=== PATIENT | male | born 1955 | race African-American/Black ===

== ENCOUNTER 2021-05-20 06:17 | Observation (INO) | payer MEDICARE, OTHER ==
[~2021-05-20] VITALS: Ht 185.4 cm; Wt 144.0 kg
[2021-05-20] MEDS ORDERED: CONTRAST GIVEN. MC PRN (08:00)
[2021-05-20] MEDS ORDERED: IOHEXOL 350 MG/ML 100 ML VIAL. IV ONE (08:00)
--- NOTE | 2021-05-20 08:00 | PHYS DOC ---
Past Medical History Past Medical History: No Pertinent History Past Surgical History: No Surgical History Alcohol Use: Occasionally Drug Use: None General Adult EDM: Chief Complaint: EYE PROBLEMS HPI: HPI: Patient is a 66 year old presents with left-sided medial hemianopsia that started approximately 7 PM last night. Patient denies any headache denies any eye pain. Denies any trauma. Denies any focal weakness denies any dizziness. Patient states that he has not had symptoms at this point prior. States it started all of a sudden. Patient does have a family history of strokes. denies smoking. Review of Systems: Review of Systems: Constitutional: Denies fever or chills. [] Eyes: Denies change in visual acuity. [] HENT: Denies nasal congestion or sore throat. [] Respiratory: Denies cough or shortness of breath. [] Cardiovascular: Denies chest pain or edema. [] GI: Denies abdominal pain, nausea, vomiting, bloody stools or diarrhea. [] : Denies dysuria. [] Musculoskeletal: Denies back pain or joint pain. [] Integument: Denies rash. [] Neurologic: Denies headache, focal weakness or sensory changes. [] Endocrine: Denies polyuria or polydipsia. [] Lymphatic: Denies swollen glands. [] Psychiatric: Denies depression or anxiety. [] Heart Score: C/O Chest Pain: No Risk Factors: Risk Factors: DM, Current or recent (<one month) smoker, HTN, HLP, family history of CAD, obesity. Risk Scores: Score 0 - 3: 2.5% MACE over next 6 weeks - Discharge Home Score 4 - 6: 20.3% MACE over next 6 weeks - Admit for Clinical Observation Score 7 - 10: 72.7% MACE over next 6 weeks - Early Invasive Strategies Current Medications: Current Medications Medications (Trade) Dose Ordered Sig/Aaron Start Time Stop Time Status Last Admin Dose Admin Iohexol (Omnipaque 350 Mg/ml) 75 ml 1X ONCE 05/20/21 08:00 05/20/21 08:01 UNV Allergies: Allergies: Allergies Coded Allergies Type Severity Reaction Last Updated Verified No Known Drug Allergies 05/20/21 No Physical Exam: PE: Constitutional: Well developed, well nourished, no acute distress, non-toxic appearance. [] HENT: Normocephalic, atraumatic, bilateral external ears normal, oropharynx moist, no oral exudates, nose normal. [] Eyes: PERRLA, EOMI, conjunctiva normal, no discharge. [] Neck: Normal range of motion, no tenderness, supple, no stridor. [] Cardiovascular:Heart rate regular rhythm, no murmur [] Lungs & Thorax: Bilateral breath sounds clear to auscultation [] Abdomen: Bowel sounds normal, soft, no tenderness, no masses, no pulsatile masses. [] Skin: Warm, dry, no erythema, no rash. [] Back: No tenderness, no CVA tenderness. [] Extremities: No tenderness, no cyanosis, no clubbing, ROM intact, no edema. [] Neurologic: Alert and oriented X 3, normal motor function, normal sensory function, no focal deficits noted. [] Psychologic: Affect normal, judgement normal, mood normal. [] Current Patient Data: Vital Signs: Vital Signs Date Time Temp Pulse Resp B/P (MAP) Pulse Ox O2 Delivery O2 Flow Rate FiO2 05/20/21 07:44 98.1 88 18 164/103 (123) 95 Room Air 98.1 EKG: EKG: []EKG shows a normal sinus rhythm with a heart rate of 81. NH interval is 204 QTC of 444. Patient does have T wave inversions in leads V2 V3 Radiology/Procedures: Radiology/Procedures: [] Course & Med Decision Making: Course & Med Decision Making Pertinent Labs and Imaging studies reviewed. (See chart for details) [] Code stroke was called Patient outside the window for TPA as patient's symptoms started approximately 12 hours prior to arrival Discussed the case with neurology Discussed the case with hospitalist critical care 30 min Bertha Disclaimer: Bertha Disclaimer: This electronic medical record was generated, in whole or in part, using a voice recognition dictation system. Departure Departure Referrals: UNKNOWN PCP NAME (PCP) NIHSS Stroke Scale NIH Stroke Scale: NIH Stroke Scale Response (Comments) Value Level of Consciousness: 0 Alert/Responsive 0 LOC Questions: 0 Answers both correctly 0 LOC Commands: 0 Performs both tasks 0 Visual: 2 Complete hemianopia 2 Facial Palsy: 0 Normal, symmetrical 0 Motor - Left Arm 0 No drift 0 Motor - Right Arm 0 No drift 0 Motor - Left Leg 0 No drift 0 Motor: Right Leg 0 No drift 0 Limb Ataxia: 0 Absent 0 Sensory: 0 No loss 0 Best Language: 0 Normal 0 Dysathria: 0 Normal 0 Extinction and Inattention: 0 Normal 0 Total 2 ANGELICA LOMELI DO May 20, 2021 08:00
[2021-05-20 08:16] LABS: BASO % 1 % (0-3); EOS % 0 % (0-3); HEMATOCRIT 45.4 % (39.0-53.0); HEMOGLOBIN 14.7 g/dL (13.0-17.5); LYMPH # 1.5 x10^3/uL (1.0-4.8); LYMPH % 30 % (24-48); MEAN CORPUSCULAR HEMOGLOBIN 28 pg (25-35); MEAN CORPUSCULAR HGB CONC 32 g/dL (31-37); MEAN CORPUSCULAR VOLUME 86 fL (79-100); MONO # 0.3 x10^3/uL (0.0-1.1); MONO % 6 % (0-9); NEUT # 3.1 x10^3/uL (1.8-7.7); NEUT % 63 % (31-73); PLATELET COUNT 194 x10^3/uL (140-400); RED BLOOD COUNT 5.29 x10^6/uL (4.30-5.70); RED CELL DISTRIBUTION WIDTH 15.3 % (11.5-14.5)
--- NOTE | 2021-05-20 08:24 | RAD ---
CT STROKE HEAD W/O History: Code stroke. Left hemianopsia. Comparison: None. Technique: Noncontrast CT imaging was performed of the head. Findings: No intracranial hemorrhage. No mass effect. No hydrocephalus. No evidence of acute territorial infar ction. Atherosclerotic calcifications of the intracranial internal carotid arteries. Imaged orbits are unremarkable. Imaged paranasal sinuses and mastoid air cells are clear. The scalp a nd calvarium are unremarkable. Impression: 1. No acute intracranial abnormality. Findings discussed with ANGELICA LOMEIL DO at 05/20/2021 8:21 AM. FOR INTERNAL CODING PURPOSES RESULT CODE: (C) ----- Exposure: One or more of the following individualized dose reduction techniques were utilized for thi s examination: 1. Automated exposure control 2. Adjustment of the mA and/or kV according to patient size 3. Use of iterative reconstruction technique. Electronically signed by: Celso Pierce MD (05/20/2021 8:22 AM) [id number]
[2021-05-20 08:26] LABS: CALCIUM 9.6 mg/dL (8.5-10.1); GFR 90.5; PROTHROMBIN TIME PATIENT 12.5 SEC (11.7-14.0)
--- NOTE | 2021-05-20 08:33 | EKG ---
[facility] [address] [place] [address] Test Date: 2021-05-20 Test Time: 08:01:57 Pat Name: LEV NOGUEIRA Department: Room: Gender: M [employer]: : 1955 Requested By: ANGELICA LOMELI Order Number: [id number] Reading MD: Gus Rivera Measurements Intervals Romayor Rate: 81 P: 45 SC: 204 QRS: -44 QRSD: 106 T: 37 QT: 382 QTc: 444 Interpretive Statements SINUS RHYTHM ABNORMAL LEFT AXIS DEVIATION LEFT ANTERIOR FASCICULAR BLOCK Electronically Signed On 05-22-2021 13:34:52 CDT by Gus Rivera
--- NOTE | 2021-05-20 08:44 | RAD ---
CTA HEAD AND NECK W/WO CONTRAST History: Left hemianopsia. Rule out stroke. Technique: After bolus of intravenous contrast, volumetric CT data acquisition was acquired of the he ad and neck. Multiplanar reconstruction images to include MIP and 3-D reconstruction images are submi tted. Any determination of stenosis is based on NASCET criteria. Comparison: None Findings: Angiogram neck: Aortic arch: Normal caliber. Three-vessel morphology. Common carotid arteries: No stenosis, occlusion or dissection. Internal carotid arteries: No stenosis, occlusion or dissection. External carotid arteries: Patent Vertebral arteries: No stenosis, occlusion or dissection. Angiogram head: ICA: No stenosis, occlusion or aneurysm. MCA: No stenosis, occlusion or aneurysm. ELIZABETH: No stenosis, occlusion or aneurysm. 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 Basilar artery: No stenosis, occlusion or aneurysm. Distal vertebral arteries: No stenosis, occlusion or aneurysm. Other: Imaged lung apices are unremarkable. Soft tissues appear normal. No pathologic osseous lesions. Degenerative changes of the cervical spine with multilevel disc space narrowing and uncovertebral hypertrophy. Impression: 1. No large vessel occlusion. 2. No significant arterial stenosis within the head or neck. Findings discussed with ANGELICA LOMELI DO at 05/20/2021 8:42 AM. FOR INTERNAL CODING PURPOSES RESULT CODE: (C) Exposure: One or more of the following individualized dose reduction techniques were utilized for thi s examination: 1. Automated exposure control 2. Adjustment of the mA and/or kV according to patient size 3. Use of iterative reconstruction technique. Electronically signed by: Celso Pierce MD (05/20/2021 8:42 AM) [id number]
[2021-05-20] MEDS ORDERED: ASPIRIN RECTAL 300 MG SUPP. PR PRN (10:45)
[2021-05-20] MEDS ORDERED: ACETAMINOPHEN 325 MG TABLET. PO PRN ×2 (10:45→18:30)
--- NOTE | 2021-05-20 10:47 | PDOC2 ---
NEUROLOGY CONSULT Date of Service DOS: DATE: 05/20/21 TIME: 10:41 Reason for Consult Reason for Consult: Left eye visual loss Source Source: Chart review, Patient History of Present Illness History of Present Illness The patient is a 56-year-old right-handed male who presented with painless left eye vision loss this morning. Symptoms started at 1900 last night. There is no history of stroke, seizure, head injury. He has not had a medical exam in several years so does not know his blood pressure or cholesterol status. Symptoms are unchanged this morning. Past Medical History Cardiovascular: No pertinent hx Past Surgical History Past Surgical History: No pertinent history Family History Family History: CVA Social History Social History Single, occasional alcohol, occasional cigarettes, mostly retired Current Medications Current Medications Current Medications Iohexol (Omnipaque 350 Mg/ml) 75 ml 1X ONCE IV Last administered on 05/20/21at 08:18; Start 05/20/21 at 08:00; Stop 05/20/21 at 08:01; Status DC Info (CONTRAST GIVEN -- Rx MONITORING) 1 each PRN DAILY PRN MC SEE COMMENTS; Start 05/20/21 at 08:00; Stop 05/22/21 at 07:59 Allergies Allergies: Coded Allergies: No Known Drug Allergies (Unverified , 05/20/21) ROS Review of System Negative for fever, chills, weight loss, shortness of breath, chest pain, indigestion, hematochezia, melena, and dysuria. Full 14-point review of systems is negative. Physical Exam Physical Examination General: Well-developed, well-nourished black male in no acute distress HEENT: Normocephalic andatraumatic. Temporal arteriespulsatile and nonte nder.Fundoscopic exam unremarkable Neck: Supple without bruit, no meningismus Musculoskeletal: Stability:see neurologic. Gait exam:see neurologic. Tone:see neurologic.Strength:see neurologic. Neurological: Mental Status:intact, orientation, memory, attention span/concentration, language, fund of knowledge normal. Cranial Nerves:Pupils equal and reactive to light, extraocular movements areintact, visual whiteside are full to confrontation. Vision loss in medial and lateral whiteside of the left eye, normal vision in the right. Facial sensation is normal. There is no facial asymmetry. Vestibulo-ocular reflex is intact. Palate elevates and tongue protrudes in midline. All other cranial related problems are negative except as mentioned before.Reflexes:2+ and symmetric with flexor plantar responses. Motor:5/5 strength with normal tone and bulk. Coordination:Finger-nose finger and kveo-kz-elta testing are normal. Rapid alternating movements and fine finger movements are intact. Gait:Normal, including tandem. Sensory:Normal pinprick, vibration, light touch, proprioception. Vitals VITALS Vital Signs Date Time Temp Pulse Resp B/P (MAP) Pulse Ox O2 Delivery O2 Flow Rate FiO2 05/20/21 10:32 82 18 186/102 (130) 98 05/20/21 09:14 Room Air 05/20/21 07:44 98.1 98.1 Labs Labs Laboratory Tests Test 05/20/21 07:58 05/20/21 08:02 Glucose (Fingerstick) 125 mg/dL (70-99) White Blood Count 5.0 x10^3/uL (4.0-11.0) Red Blood Count 5.29 x10^6/uL (4.30-5.70) Hemoglobin 14.7 g/dL (13.0-17.5) Hematocrit 45.4 % (39.0-53.0) Mean Corpuscular Volume 86 fL (79-100) Mean Corpuscular Hemoglobin 28 pg (25-35) Mean Corpuscular Hemoglobin Concent 32 g/dL (31-37) Red Cell Distribution Width 15.3 % (11.5-14.5) Platelet Count 194 x10^3/uL (140-400) Neutrophils (%) (Auto) 63 % (31-73) Lymphocytes (%) (Auto) 30 % (24-48) Monocytes (%) (Auto) 6 % (0-9) Eosinophils (%) (Auto) 0 % (0-3) Basophils (%) (Auto) 1 % (0-3) Neutrophils # (Auto) 3.1 x10^3/uL (1.8-7.7) Lymphocytes # (Auto) 1.5 x10^3/uL (1.0-4.8) Monocytes # (Auto) 0.3 x10^3/uL (0.0-1.1) Eosinophils # (Auto) 0.0 x10^3/uL (0.0-0.7) Basophils # (Auto) 0.0 x10^3/uL (0.0-0.2) Prothrombin Time 12.5 SEC (11.7-14.0) Prothromb Time International Ratio 1.0 (0.8-1.1) Activated Partial Thromboplast Time 30 SEC (24-38) Sodium Level 140 mmol/L (136-145) Potassium Level 4.0 mmol/L (3.5-5.1) Chloride Level 106 mmol/L (98-107) Carbon Dioxide Level 26 mmol/L (21-32) Anion Gap 8 (6-14) Blood Urea Nitrogen 11 mg/dL (8-26) Creatinine 1.0 mg/dL (0.7-1.3) Estimated GFR (Cockcroft-Gault) 90.5 Glucose Level 118 mg/dL (70-99) Calcium Level 9.6 mg/dL (8.5-10.1) Laboratory Tests Test 05/20/21 07:58 05/20/21 08:02 Glucose (Fingerstick) 125 mg/dL (70-99) White Blood Count 5.0 x10^3/uL (4.0-11.0) Red Blood Count 5.29 x10^6/uL (4.30-5.70) Hemoglobin 14.7 g/dL (13.0-17.5) Hematocrit 45.4 % (39.0-53.0) Mean Corpuscular Volume 86 fL (79-100) Mean Corpuscular Hemoglobin 28 pg (25-35) Mean Corpuscular Hemoglobin Concent 32 g/dL (31-37) Red Cell Distribution Width 15.3 % (11.5-14.5) Platelet Count 194 x10^3/uL (140-400) Neutrophils (%) (Auto) 63 % (31-73) Lymphocytes (%) (Auto) 30 % (24-48) Monocytes (%) (Auto) 6 % (0-9) Eosinophils (%) (Auto) 0 % (0-3) Basophils (%) (Auto) 1 % (0-3) Neutrophils # (Auto) 3.1 x10^3/uL (1.8-7.7) Lymphocytes # (Auto) 1.5 x10^3/uL (1.0-4.8) Monocytes # (Auto) 0.3 x10^3/uL (0.0-1.1) Eosinophils # (Auto) 0.0 x10^3/uL (0.0-0.7) Basophils # (Auto) 0.0 x10^3/uL (0.0-0.2) Prothrombin Time 12.5 SEC (11.7-14.0) Prothromb Time International Ratio 1.0 (0.8-1.1) Activated Partial Thromboplast Time 30 SEC (24-38) Sodium Level 140 mmol/L (136-145) Potassium Level 4.0 mmol/L (3.5-5.1) Chloride Level 106 mmol/L (98-107) Carbon Dioxide Level 26 mmol/L (21-32) Anion Gap 8 (6-14) Blood Urea Nitrogen 11 mg/dL (8-26) Creatinine 1.0 mg/dL (0.7-1.3) Estimated GFR (Cockcroft-Gault) 90.5 Glucose Level 118 mg/dL (70-99) Calcium Level 9.6 mg/dL (8.5-10.1) Images Images CT STROKE HEAD W/O History: Code stroke. Left hemianopsia. Comparison: None. Technique: Noncontrast CT imaging was performed of the head. Findings: No intracranial hemorrhage. No mass effect. No hydrocephalus. No evidence of acute territorial infarction. Atherosclerotic calcifications of the intracranial internal carotid arteries. Imaged orbits are unremarkable. Imaged paranasal sinuses and mastoid air cells are clear. The scalp and calvarium are unremarkable. Impression: 1. No acute intracranial abnormality. CTA HEAD AND NECK W/WO CONTRAST History: Left hemianopsia. Rule out stroke. Technique: After bolus of intravenous contrast, volumetric CT data acquisition was acquired of the head and neck. Multiplanar reconstruction images to include MIP and 3-D reconstruction images are submitted. Any determination of stenosis is based on NASCET criteria. Comparison: None Findings: Angiogram neck: Aortic arch: Normal caliber. Three-vessel morphology. Common carotid arteries: No stenosis, occlusion or dissection. Internal carotid arteries: No stenosis, occlusion or dissection. External carotid arteries: Patent Vertebral arteries: No stenosis, occlusion or dissection. Angiogram head: ICA: No stenosis, occlusion or aneurysm. MCA: No stenosis, occlusion or aneurysm. ELIZABETH: No stenosis, occlusion or aneurysm. CELL LEAD: No stenosis, occlusion or aneurysm. Basilar artery: No stenosis, occlusion or aneurysm. Distal vertebral arteries: No stenosis, occlusion or aneurysm. Other: Imaged lung apices are unremarkable. Soft tissues appear normal. No pathologic osseous lesions. Degenerative changes of the cervical spine with multilevel disc space narrowing and uncovertebral hypertrophy. Impression: 1. No large vessel occlusion. 2. No significant arterial stenosis within the head or neck. Assessment/Plan Assessment/Plan Impression: Dr. Porter gets a left medial hemianopsia of the left eye, but I get vision loss in the entire left eye, without involvement of the right eye. 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 Vision loss is painless, doubt that he has acute glaucoma or intraocular problem, and I also see nothing on my funduscopy. Note patient has hypertension, probably has several other untreated medical conditions as he has not seen a physician in several years. Recommendations: As discussed with Dr. Porter, patient is far outside the alteplase window He has already had normal CT of the head and CT angiogram Check MRI of the brain Consider echocardiogram Aspirin Statin if lipid profile is abnormal Rehabilitation screening Control of blood pressure, target for today is less than 210/120, okay to start tightening blood pressure control starting tomorrow I informed patient we do not have inpatient ophthalmology consultations here, he will need to see an reproduction specialist as an outpatient after discharge Aim for discharge tomorrow Also see stroke orders Thank you for letting me help with the patient's care. SAULO OSWALD MD May 20, 2021 10:47
[2021-05-20 11:10] VITALS: BP 176/96
[2021-05-20 11:13] LABS: CHOLESTEROL/HDL RATIO 3.4
[2021-05-20] MEDS: DOCUSATE SODIUM 100 MG CAPSULE. PO PRN (12:43)
--- NOTE | 2021-05-20 14:27 | RAD ---
MRI BRAIN WO Date: 05/20/2021 12:04 PM Indication: Left eye vision loss Comparison: CT 05/20/2021. Technique: Multiplanar multisequence MRI of the brain was performed without intravenous contrast usin g the standard protocol. Findings: No acute infarct. No acute or chronic hemorrhage. The ventricles are normal in size and configuration without hydrocephalus. Mild to moderate scattered FLAIR hyperintensities in the subcortical and stefania ventricular deep white matter, a nonspecific finding, most commonly seen with chronic small vessel is chemic disease. The scalp and calvarium are normal. The pituitary and sella are normal. No Chiari malformation. The v isualized upper cervical spine is normal. The visualized orbits and globes are normal. The visualized paranasal sinuses are clear. The mastoid air cells are clear. Normal flow voids within the vertebral, basilar, and internal carotid arteries indicating patency. IMPRESSION: 1. No acute infarct, acute hemorrhage, mass, or hydrocephalus. 2. Mild to moderate scattered FLAIR hyperintensities in the subcortical and periventricular deep whit e matter, a nonspecific finding, most commonly seen with chronic small vessel ischemic disease. Electronically signed by: Edgardo Reyes MD (05/20/2021 2:25 PM) [id number]
[2021-05-20 14:52] VITALS: BP 178/91
--- NOTE | 2021-05-20 18:27 | PDOC1 ---
History and Physical Date of Admission Date of Admission DATE: 05/20/21 TIME: 18:20 Identification/Chief Complaint Chief Complaint Vision loss Source Source: Patient History of Present Illness History of Present Illness Patient is a 66-year-old male with no stated past medical history, who reports left-sided medial hemiparesis that started suddenly last night. He denies any associated eye pain. He was vision loss persisted this morning he came to the ED for further evaluation. Labs on admission were largely unremarkable except some mild hyperglycemia. CT head showed no acute abnormality. Patient will be admitted for further medical management. Past Medical History Cardiovascular: No pertinent hx Past Surgical History Past Surgical History: No pertinent history Family History Family History: Diabetes, Stroke Social History Smoke: No ALCOHOL: occassional Drugs: None Current Problem List Problem List Problems Medical Problems: (1) CVA (cerebral vascular accident) Status: Acute Current Medications Current Medications Current Medications Iohexol (Omnipaque 350 Mg/ml) 75 ml 1X ONCE IV Last administered on 05/20/21at 08:18; Start 05/20/21 at 08:00; Stop 05/20/21 at 08:01; Status DC Info (CONTRAST GIVEN -- Rx MONITORING) 1 each PRN DAILY PRN MC SEE COMMENTS; Start 05/20/21 at 08:00; Stop 05/22/21 at 07:59 Acetaminophen (Tylenol) 650 mg PRN Q6HRS PRN PO MILD PAIN / TEMP > 100.3'F; Start 05/20/21 at 10:45 Aspirin (Ecotrin) 325 mg DAILYWBKFT PO ; Start 05/21/21 at 08:00 Aspirin (Aspirin Rectal Supp) 300 mg PRN DAILY PRN MD IF UNABLE TO TAKE PO; Start 05/20/21 at 10:45 Docusate Sodium (Colace) 100 mg PRN DAILY PRN PO HARD STOOLS Last administered on 05/20/21at 12:43; Start 05/20/21 at 12:00 Atorvastatin Calcium (Lipitor) 80 mg QHS PO ; Start 05/20/21 at 21:00 Active Scripts Active Reported No Known Medications Prior To Admisstion (Info) Each 1 Each MC 1X Allergies Allergies: Coded Allergies: No Known Drug Allergies (Unverified , 05/20/21) ROS Review of System GENERAL: No history of weight change, weakness or fevers. SKIN: No bruising, hair changes or rashes. EYES: Left eye vision loss NOSE AND THROAT: No history of nosebleeds, hoarseness or sore throat. HEART: Denies chest pain, denies palpitations. LUNGS: Denies cough, hemoptysis, wheezing or shortness of breath. GASTROINTESTINAL: Denies nausea, vomiting, abdominal pain. GENITOURINARY: Denies dysuria, frequency, urgency, hematuria. NEUROLOGIC: Denies history of numbness, tingling, tremor or weakness. PSYCHIATRIC: Denies anxiety, denies depression. ENDOCRINE: No history of heat or cold intolerance, polyuria or polydipsia. EXTREMITIES: Denies muscle weakness, joint pain, pain on walking or stiffness. Physical Exam Physical Exam General: Alert, Oriented X3, Cooperative, No acute distress. Morbidly obese. HEENT: PERRLA, EOMI Lungs: Clear to auscultation, Normal air movement Heart: RRR, no murmurs Cardiovascular: S1, S2 Abdomen: Normal bowel sounds, Soft, No tenderness Extremities: No clubbing, No cyanosis Skin: No rashes, No significant lesion Neuro: Normal speech, Normal tone, Sensation intact Psych/Mental Status: Mental status NL, Mood NL Vitals Vitals Vital Signs Date Time Temp Pulse Resp B/P (MAP) Pulse Ox O2 Delivery O2 Flow Rate FiO2 05/20/21 14:52 98.5 87 20 178/91 (120) 95 Room Air 98.5 Labs Labs Laboratory Tests Test 05/20/21 07:58 05/20/21 08:02 05/20/21 08:05 Glucose (Fingerstick) 125 mg/dL (70-99) White Blood Count 5.0 x10^3/uL (4.0-11.0) Red Blood Count 5.29 x10^6/uL (4.30-5.70) Hemoglobin 14.7 g/dL (13.0-17.5) Hematocrit 45.4 % (39.0-53.0) Mean Corpuscular Volume 86 fL (79-100) Mean Corpuscular Hemoglobin 28 pg (25-35) Mean Corpuscular Hemoglobin Concent 32 g/dL (31-37) Red Cell Distribution Width 15.3 % (11.5-14.5) Platelet Count 194 x10^3/uL (140-400) Neutrophils (%) (Auto) 63 % (31-73) Lymphocytes (%) (Auto) 30 % (24-48) Monocytes (%) (Auto) 6 % (0-9) Eosinophils (%) (Auto) 0 % (0-3) Basophils (%) (Auto) 1 % (0-3) Neutrophils # (Auto) 3.1 x10^3/uL (1.8-7.7) Lymphocytes # (Auto) 1.5 x10^3/uL (1.0-4.8) Monocytes # (Auto) 0.3 x10^3/uL (0.0-1.1) Eosinophils # (Auto) 0.0 x10^3/uL (0.0-0.7) Basophils # (Auto) 0.0 x10^3/uL (0.0-0.2) Prothrombin Time 12.5 SEC (11.7-14.0) Prothromb Time International Ratio 1.0 (0.8-1.1) Activated Partial Thromboplast Time 30 SEC (24-38) Sodium Level 140 mmol/L (136-145) Potassium Level 4.0 mmol/L (3.5-5.1) Chloride Level 106 mmol/L (98-107) Carbon Dioxide Level 26 mmol/L (21-32) Anion Gap 8 (6-14) Blood Urea Nitrogen 11 mg/dL (8-26) Creatinine 1.0 mg/dL (0.7-1.3) Estimated GFR (Cockcroft-Gault) 90.5 Glucose Level 118 mg/dL (70-99) Calcium Level 9.6 mg/dL (8.5-10.1) Triglycerides Level 97 mg/dL (0-150) Cholesterol Level 232 mg/dL (0-200) LDL Cholesterol, Calculated 144 mg/dL (0-100) VLDL Cholesterol, Calculated 19 mg/dL (0-40) Non-HDL Cholesterol Calculated 163 mg/dL (0-129) HDL Cholesterol 69 mg/dL (40-60) Cholesterol/HDL Ratio 3.4 Laboratory Tests Test 05/20/21 07:58 05/20/21 08:02 05/20/21 08:05 Glucose (Fingerstick) 125 mg/dL (70-99) White Blood Count 5.0 x10^3/uL (4.0-11.0) Red Blood Count 5.29 x10^6/uL (4.30-5.70) Hemoglobin 14.7 g/dL (13.0-17.5) Hematocrit 45.4 % (39.0-53.0) Mean Corpuscular Volume 86 fL (79-100) Mean Corpuscular Hemoglobin 28 pg (25-35) Mean Corpuscular Hemoglobin Concent 32 g/dL (31-37) Red Cell Distribution Width 15.3 % (11.5-14.5) Platelet Count 194 x10^3/uL (140-400) Neutrophils (%) (Auto) 63 % (31-73) Lymphocytes (%) (Auto) 30 % (24-48) Monocytes (%) (Auto) 6 % (0-9) Eosinophils (%) (Auto) 0 % (0-3) Basophils (%) (Auto) 1 % (0-3) Neutrophils # (Auto) 3.1 x10^3/uL (1.8-7.7) Lymphocytes # (Auto) 1.5 x10^3/uL (1.0-4.8) Monocytes # (Auto) 0.3 x10^3/uL (0.0-1.1) Eosinophils # (Auto) 0.0 x10^3/uL (0.0-0.7) Basophils # (Auto) 0.0 x10^3/uL (0.0-0.2) Prothrombin Time 12.5 SEC (11.7-14.0) Prothromb Time International Ratio 1.0 (0.8-1.1) Activated Partial Thromboplast Time 30 SEC (24-38) Sodium Level 140 mmol/L (136-145) Potassium Level 4.0 mmol/L (3.5-5.1) Chloride Level 106 mmol/L (98-107) Carbon Dioxide Level 26 mmol/L (21-32) Anion Gap 8 (6-14) Blood Urea Nitrogen 11 mg/dL (8-26) Creatinine 1.0 mg/dL (0.7-1.3) Estimated GFR (Cockcroft-Gault) 90.5 Glucose Level 118 mg/dL (70-99) Calcium Level 9.6 mg/dL (8.5-10.1) Triglycerides Level 97 mg/dL (0-150) Cholesterol Level 232 mg/dL (0-200) LDL Cholesterol, Calculated 144 mg/dL (0-100) VLDL Cholesterol, Calculated 19 mg/dL (0-40) Non-HDL Cholesterol Calculated 163 mg/dL (0-129) HDL Cholesterol 69 mg/dL (40-60) Cholesterol/HDL Ratio 3.4 Images Images PATIENT: LEV NOGUEIRA ACCOUNT: [id number] : 1955 LOCATION: ER AGE: 66 SEX: M EXAM STATUS: REG ER ORD. PHYSICIAN: ANGELICA LOMELI DO REASON: stroke PROCEDURE: CT CODE STROKE HEAD WO CT STROKE HEAD W/O History: Code stroke. Left hemianopsia. Comparison: None. Technique: Noncontrast CT imaging was performed of the head. Findings: No intracranial hemorrhage. No mass effect. No hydrocephalus. No evidence of acute territorial infarction. Atherosclerotic calcifications of the intracranial internal carotid arteries. Imaged orbits are unremarkable. Imaged paranasal sinuses and mastoid air cells are clear. The scalp and calvarium are unremarkable. Impression: 1. No acute intracranial abnormality. VTE Prophylaxis Ordered VTE Prophylaxis Devices: No VTE Pharmacological Prophylaxi: Yes Assessment/Plan Assessment/Plan CVA Plan: Consultation neurology MRI brain pending Lipids pending, hemoglobin A1c pending Aspirin, statin IV hydralazine; allow some degree of permissive hypertension for 24-48 hours. FEN - Cardiac diet PPX - Lovenox FULL CODE/surrogate decision-maker is Artie Nogueira (brother) Dispo - inpatient for above Justifications for Admission Other Justification RAFA KC MD May 20, 2021 18:27
[2021-05-20] MEDS ORDERED: hydrALAZINE 20 MG/ML VIAL. IVP PRN (18:30)
[2021-05-20] MEDS ORDERED: MAGNESIUM HYDROXIDE 2,400 MG/30 ML ORAL.SUSP. PO PRN (18:30)
[2021-05-20] MEDS ORDERED: ONDANSETRON PF 4 MG/2 ML VIAL. IVP PRN (18:30)
[2021-05-20] MEDS ORDERED: CALCIUM CARBONATE 500 MG TAB.CHEW PO PRN (18:30)
[2021-05-20] MEDS ORDERED: ZOLPIDEM 5 MG TABLET. PO PRN (18:30)
[2021-05-20] MEDS ORDERED: MAG HYDROX/ALUMINUM HYD/SIMETH 30 ML ORAL.SUSP PO PRN (18:30)
[2021-05-20] MEDS ORDERED: HYDROcodone/APAP 5/325MG 1 TAB TABLET PO PRN (18:30)
[2021-05-20 19:33] VITALS: BP 148/73
--- NOTE | 2021-05-20 20:05 | NUR ---
pt admitted 05/29. no admit note lcrn
[2021-05-20] MEDS ORDERED: ATORVASTATIN CALCIUM 40 MG TABLET. PO SCH (21:00)
[2021-05-20] MEDS: ENOXAPARIN 40 MG/0.4 ML SYRINGE. SQ SCH (22:17)
[2021-05-20 22:36] VITALS: BP 121/79
[2021-05-21 00:13] LABS: HEMOGLOBIN A1C 5.7 % (4.8-5.6)
[2021-05-21 02:46] VITALS: BP 144/71
[2021-05-21 06:03] LABS: BASO % 1 % (0-3); EOS # 0.1 x10^3/uL (0.0-0.7); EOS % 2 % (0-3); HEMATOCRIT 41.1 % (39.0-53.0); HEMOGLOBIN 13.3 g/dL (13.0-17.5); LYMPH # 2.1 x10^3/uL (1.0-4.8); LYMPH % 41 % (24-48); MEAN CORPUSCULAR HEMOGLOBIN 28 pg (25-35); MEAN CORPUSCULAR HGB CONC 32 g/dL (31-37); MEAN CORPUSCULAR VOLUME 87 fL (79-100); MONO # 0.4 x10^3/uL (0.0-1.1); MONO % 8 % (0-9); NEUT # 2.4 x10^3/uL (1.8-7.7); NEUT % 48 % (31-73); PLATELET COUNT 164 x10^3/uL (140-400); RED BLOOD COUNT 4.72 x10^6/uL (4.30-5.70); RED CELL DISTRIBUTION WIDTH 15.8 % (11.5-14.5); WHITE BLOOD COUNT 5.1 x10^3/uL (4.0-11.0)
[2021-05-21 06:28] LABS: ALBUMIN 3.5 g/dL (3.4-5.0); ALBUMIN/GLOBULIN RATIO 1.2 (1.0-1.7); CALCIUM 8.9 mg/dL (8.5-10.1); GFR 90.5; POTASSIUM 3.8 mmol/L (3.5-5.1); TOTAL BILIRUBIN 0.7 mg/dL (0.2-1.0); TOTAL PROTEIN 6.5 g/dL (6.4-8.2)
[2021-05-21 07:00] VITALS: BP 163/94
[2021-05-21] MEDS ORDERED: ATOR40TA59 PO (07:43)
[2021-05-21] MEDS ORDERED: ASPI-886 PO (07:43)
--- NOTE | 2021-05-21 07:46 | DISCH ---
DISCHARGE INSTRUCTIONS Condition on Discharge Condition on Discharge: Stable Activity After Discharge Activity Instructions for Disc: Activity as tolerated Exercise Instruction after Dis: Walk 30 min, 5 x per week Driving Instructions after Dis: Do not drive today Diet after Discharge Diet after Discharge: Cardiac Follow-Up Follow up with: PCP within 2 weeks of discharge Follow Up With: Neurology as needed are scheduled GLENNY CASTELLON MD May 21, 2021 07:46
[2021-05-21] MEDS: ENOXAPARIN 40 MG/0.4 ML SYRINGE. SQ SCH (07:52)
[2021-05-21] MEDS: DOCUSATE SODIUM 100 MG CAPSULE. PO PRN (07:54)
[2021-05-21] MEDS ORDERED: ASPIRIN ENTERIC COATED 325 MG TABLET.DR. PO SCH (08:00)
[2021-05-21 10:54] VITALS: BP 149/83
--- NOTE | 2021-05-21 11:20 | NUR ---
SS following for discharge planning. SS reviewed pt chart and discussed with pt RN. Pt is from home and is currently on room air. Neurology following. PO diet. PT/OT recommended home. Discharge order on the chart for home with self care. Ophthalmology appt. requested. SS contacted [facility] Ophthalmology, ; fax [phone], [address], [facility] [id number], and made pt appointment for 05/27/2021 at 1445. New pt paperwork provided to pt. Pt's RN notified.
--- NOTE | 2021-05-21 12:08 | NUR ---
Discharge Note: KATHIE NOGUEIRA [facility] Discharge instructions and discharge home medications reviewed with Patient and a copy given. All questions have been answered and understanding verbalized. The following instructions and handouts were given: Follow up and new medications Discontinued lines and drains: IV and paper wood cutter removed Patient discharged to home alone
--- NOTE | 2021-05-26 15:48 | PDOC3 ---
[facility]-Discharge Summary Date of Admission: Date of Admission: May 20, 2021 Date of Discharge: Date of Discharge: May 21, 2021 Discharge Diagnosis: Discharge Diagnosis: Monocular eye vision loss. Consults: Consults: Per neurology: Recommendations: As discussed with Dr. Porter, patient is far outside the alteplase window He has already had normal CT of the head and CT angiogram Check MRI of the brain Consider echocardiogram Aspirin Statin if lipid profile is abnormal Rehabilitation screening Control of blood pressure, target for today is less than 210/120, okay to start tightening blood pressure control starting tomorrow I informed patient we do not have inpatient ophthalmology consultations here, he will need to see an bone crusher as an outpatient after discharge Aim for discharge tomorrow Also see stroke orders Procedures: Procedures: PROCEDURE: BRAIN W/O CONTRAST MRI BRAIN WO Date: 05/20/2021 12:04 PM Indication: Left eye vision loss Comparison: CT 05/20/2021. Technique: Multiplanar multisequence MRI of the brain was performed without intravenous contrast using the standard protocol. Findings: No acute infarct. No acute or chronic hemorrhage. The ventricles are normal in size and configuration without hydrocephalus. Mild to moderate scattered FLAIR hyperintensities in the subcortical and periventricular deep white matter, a nonspecific finding, most commonly seen with chronic small vessel ischemic disease. The scalp and calvarium are normal. The pituitary and sella are normal. No Chiari malformation. The visualized upper cervical spine is normal. The visualized orbits and globes are normal. The visualized paranasal sinuses are clear. The mastoid air cells are clear. Normal flow voids within the vertebral, basilar, and internal carotid arteries indicating patency. IMPRESSION: 1. No acute infarct, acute hemorrhage, mass, or hydrocephalus. 2. Mild to moderate scattered FLAIR hyperintensities in the subcortical and per iventricular deep white matter, a nonspecific finding, most commonly seen with chronic small vessel ischemic disease. Hospital Course: Hospital Course: 66-year-old male with no stated past medical history, who reports left-sided medial hemiparesis that started suddenly last night. He denies any associated eye pain. He was vision loss persisted this morning he came to the ED for further evaluation. Labs on admission were largely unremarkable except some mild hyperglycemia. CT head showed no acute abnormality. Patient will be admitted for further medical management. Patient evaluated by neurology and recommendations are left above. MRI negative for any acute CVA. Patient was clinically stable by time of discharge. Rest of hospital course was uneventful Disposition: Disposition/Orders: D/C to Home Activity: Activity: Resume previous activity Diet: Diet: Regular Medications: Home Meds Active Scripts Aspirin (ASPIRIN EC) 81 Mg Tablet.dr, 1 TAB PO DAILY for stroke prevention, #30 TAB 3 Refills Prov:GLENNY CASTELLON MD 05/21/21 Atorvastatin Calcium (ATORVASTATIN CALCIUM) 40 Mg Tablet, 40 MG PO QHS for cholesterol for 30 Days, #30 TAB 2 Refills Prov:GLENNY CASTELLON MD 05/21/21 Reported Medications Info (NO KNOWN MEDICATIONS PRIOR TO ADMISSTION) Each, 1 EACH MC 1X for ., EACH 05/20/21 Scheduled Aspirin (Aspirin Ec), 1 TAB PO DAILY Atorvastatin Calcium (Atorvastatin Calcium), 40 MG PO QHS Info (No Known Medications Prior To Admisstion), 1 EACH MC 1X, (Reported) Total Time: Total Time: Total time spent was 32 minutes in preparing scripts, discharge planning with SWI and RN and preparing this discharge summary Patient seen and examined on day of discharge. No acute abnormal findings. Justicifation of Admission Dx: Justifications for Admission: Justification of Admission Dx: Yes Stroke - Ischemic: Stroke-Ischemic GLENNY CASTELLON MD May 26, 2021 15:48
== END 2021-05-21 11:55 | disposition still patient (30) ==
LOC: ER 06:17 → INTOOBSV 08:54 → 6 SOUTH 08:54
PROVIDERS: ADMIT Family Medicine; ATTEND Family Medicine
DX: I63.9 Cerebral infarction, unspecified (principal); H54.62 Unqualified visual loss, left eye, normal vision right eye; I10 Essential (primary) hypertension; H34.12 Central retinal artery occlusion, left eye; F17.210 Nicotine dependence, cigarettes, uncomplicated; Z79.82 Long term (current) use of aspirin; Z79.899 Other long term (current) drug therapy; Z98.890 Other specified postprocedural states; R29.702 NIHSS score 2
CPT/HCPCS: 36415; 70450; 70496; 70498; 70551; 80048; 80053; 80061; 82962; 83036; 85025; 85610; 85730; 92610; 93005; 96372; 97116; 97161; 97165; 99291; J1650; Q9967; G0378; G0379